=== PATIENT | female | born 1970 | race Two or more races ===

== ENCOUNTER 2023-04-30 09:46 | Day surgery (SDC) | payer OTHER ==
[2023-04-25 14:35] LABS: Basophils # (auto) 0.1 10 ^3/uL (0-0.2); Basophils % (auto) 0.6 % (0.0-2.0); Eosinophils # (auto) 0.3 10 ^3/uL (0-0.8); Eosinophils % (auto) 2.3 % (0.0-7.0); Hematocrit 46.4 % (36.0-46.0); Hemoglobin 15.3 g/dL (12.2-16.2); Lymphocytes # (auto) 3.2 10 ^3/uL (0.4-5.4); Mean Corpuscular Hemoglobin 27.5 pg (28.0-32.0); Mean Corpuscular Hgb Conc. 32.9 g/dL (32.0-36.0); Mean Corpuscular Volume 83.7 fL (80.0-100.0); Monocytes # (auto) 0.8 10 ^3/uL (0-1.3); Monocytes % (auto) 7.3 % (0.0-12.0); Neutrophils # (auto) 6.6 10 ^3/uL (1.6-8.6); Neutrophils % (auto) 60.8 % (37.0-80.0); Nucleated Red Blood Cells % 0.1 %; Red Blood Cells 5.55 10^6/uL (4.0-5.20); Red Cell Distribution Width 13.9 % (11.8-14.3); White Blood Cell 10.9 10^3/uL (4.4-10.8)
[2023-04-25 14:39] LABS: INR 1.05 (0.9-1.15); Partial Thromboplastin Time 26.5 SEC (24.5-34.5)
[2023-04-25 14:48] LABS: Alanine Aminotransferase 37 U/L (7-40); Albumin 4.6 g/dL (3.2-4.8); Alkaline Phosphatase 135 U/L (46-116); Anion Gap 6 (5-15); Aspartate Aminotransferase 23 U/L (13-40); BUN/Creatinine Ratio 9.5 (10.0-20.0); Blood Urea Nitrogen 8 mg/dL (9-23); Calcium 9.5 mg/dL (8.5-10.1); Carbon Dioxide 30 mmol/L (20-30); Chloride 105 mmol/L (98-107); Glucose 83 mg/dL (74-106); Potassium 3.8 mmol/L (3.5-5.1); Sodium 141 mmol/L (136-145)
[2023-04-25 14:49] LABS: Bilirubin, Total 0.5 mg/dL (0.2-1.0); Total Protein 7.5 g/dL (5.7-8.2)
[~2023-04-30] VITALS: Ht 170.2 cm; Wt 99.8 kg
[~2023-04-30 09:46] MED LIST: ACYC400T16 PO; ALBU1AER4 IN; AMIT10TA10 PO; ATOR20TA PO; CHOL400C12 PO; FLUT1SPR5; FLUT250M2 IN; MONT5CHW12 PO; OMEG100016 PO; OMEP-434 PO; RIZA10TA12 PO
[2023-04-30] MEDS ORDERED: SODIUM CHLORIDE LOCK 10 ML ONE (09:47)
[2023-04-30] MEDS ORDERED: diphenhdrAMINE HCL 50 MG/1 ML VL ONE (09:48)
[2023-04-30 10:44] VITALS: O2SAT 96
[2023-04-30] MEDS: MIDAZOLAM HCL 5 MG/ML-1ML VIAL ONE ×3 (10:47→10:56)
[2023-04-30] MEDS: fentaNYL CITRATE 100 MCG/2 ML VL ONE ×3 (10:47→10:56)
[2023-04-30 11:06] VITALS: TEMP 97.9; O2SAT 97
[2023-04-30 11:36] VITALS: BP 121/64; PULSE 82; RESP 20; O2SAT 99
== END 2023-04-30 13:07 | disposition home or self-care (01) ==
LOC: GI 09:46
PROVIDERS: ATTEND Internal Medicine Gastroenterology
DX: Z12.11 Encounter for screening for malignant neoplasm of colon (principal); Q43.8 Other specified congenital malformations of intestine; K64.8 Other hemorrhoids
CPT/HCPCS: 36415; 45378; 80053; 85025; 85610; 85730; J1200; J2250; J3010; J7030; 99152